=== PATIENT | male | born 1980 | race Caucasian/White ===

== ENCOUNTER 2017-01-30 03:16 | Emergency (ER) | payer OTHER ==
--- NOTE | ~2017-01-30 | CR126 ---
[facility] A Service of [facility] & [facility] RADIOLOGY TEXT RESULTS PATIENT: YANNICK MCKNIGHT LOCATION: [facility] : 80 UNIT #: [id number] AGE: [address]: Tony Velez SEX: M ORDER DR: [id number] [facility] [address] [place], [place] [address] [id number] MR#: [id number] #: [id number] NAME: YANNICK MCKNIGHT : 1980 SEX: M STUDY DATE/TIME: 01/30/2017 6:11 UNIT: [facility] ROOM: STUDY DESCRIPTION: CR Foot Complete Min 3 View Lt Attending Physician: Tony Velez P.A.-C. Ordering Physician: Tony Velez P.A.-C. Primary Care Physician: Eder Cabrera M.D. MEDICAL IMAGING REPORT This report is preliminary unless electronic signature is present EXAM Left foot 3 views HISTORY Left calcaneal pain since 20:00 hours yesterday. No known injury. FINDINGS Three views of the left foot demonstrates no fracture or dislocation. Prominent plantar calcaneal spur. Ankle and subtalar joint unremarkable. Soft tissues appear normal. IMPRESSION Prominent plantar calcaneal spur nonspecific, otherwise negative exam. Dictated by... Lisa Carias M.D. THIS IS AN ELECTRONICALLY VERIFIED REPORT Lisa Carias M.D. at 01/30/2017 3:55 PM CRAIG/kassi TD: 01/30/2017 10:15 JOB #: [id number] MEDICAL IMAGING REPORT Page 1 of 1 COPY
== END 2017-01-30 06:40 | disposition home or self-care (01) ==
LOC: CED 03:16
DX: M77.32 Calcaneal spur, left foot (principal); I10 Essential (primary) hypertension; F17.210 Nicotine dependence, cigarettes, uncomplicated; Z88.5 Allergy status to narcotic agent
CPT/HCPCS: 73630; 99283